=== PATIENT | female | born 1960 | race Two or more races ===

== ENCOUNTER 2020-10-01 16:20 | Emergency (ER) | payer MEDICARE ==
[~2020-10-01] VITALS: Ht 165.1 cm; Wt 114.5 kg
[~2020-10-01 16:20] MED LIST: FELO5TAB4 PO; METO-95 PO; PRED1TAB19; SIMV10TA18; SUMA5SPR2
[2020-10-01 17:08] LABS: BASOPHILS % (AUTO) 0 % (0-1); EOSINOPHILS % (AUTO) 1 % (1-7); LYMPHOCYTES % (AUTO) 39 % (22-44); MEAN CORPUSCULAR HEMOGLOBIN 28.3 pg (27.0-34.8); MEAN CORPUSCULAR HGB CONC 33.4 g/dL (32.4-35.8); MONOCYTES % (AUTO) 10 % (2-9); NEUTROPHILS % (AUTO) 50 % (42-75); PLATELET COUNT 235 x10^3/uL (130-400); RED BLOOD COUNT 5.05 x10^6/uL (3.82-5.3); RED CELL DISTRIBUTION WIDTH 14.1 % (9.6-15.2)
[2020-10-01 17:13] LABS: ALBUMIN 3.5 g/dL (3.4-5.0); ANION GAP 6 mmol/L (5-15); CALCIUM 8.7 mg/dL (8.5-10.1); CHLORIDE 106 mmol/L (98-107)
[2020-10-01 17:16] LABS: MD NO
[2020-10-01 17:19] LABS: ALANINE AMINOTRANSFERASE 17 U/L (12-78); ALKALINE PHOSPHATASE 120 U/L (45-117); BILIRUBIN,TOTAL 0.5 mg/dL (0.2-1.0); CREATININE 0.82 mg/dL (0.55-1.02); TOTAL PROTEIN 8.3 g/dL (6.4-8.2); TROPONIN I < 0.015 ng/mL (0.000-0.045)
--- NOTE | 2020-10-01 17:37 | NUR ---
PE MANAGER: PT TO ROOM FROM [facility]
[2020-10-01] MEDS ORDERED: MAALOX/HYOSCYAMINE/LIDOCAINE 45 ML BTL ONE (18:05)
[2020-10-01 18:29] VITALS: BP 114/70
[2020-10-01] MEDS ORDERED: MAALOX/HYOSCYAMINE/LIDOCAINE 45 ML BTL PO ONE (18:30)
== END 2020-10-01 18:39 | disposition home or self-care (01) ==
LOC: ED 18:33
DX: R07.2 Precordial pain (principal); R50.9 Fever, unspecified; R11.0 Nausea; R94.31 Abnormal electrocardiogram [ECG] [EKG]; I10 Essential (primary) hypertension; E11.9 Type 2 diabetes mellitus without complications; E78.5 Hyperlipidemia, unspecified
CPT/HCPCS: 36415; 71045; 76700; 80053; 83690; 84484; 85025; 93005; 99285

== ENCOUNTER 2020-12-29 13:21 | Emergency (ER) | payer MEDICARE ==
[~2020-12-29] VITALS: Ht 165.1 cm; Wt 117.1 kg
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
[2020-12-29] MEDS ORDERED: HYDROcodone/APAP 5/325 TABLET ONE (14:49)
[2020-12-29] MEDS ORDERED: HYDROcodone/APAP 5/325 TABLET PO ONE (15:00)
--- NOTE | 2020-12-29 15:06 | NUR ---
PT IN CT AT THIS TIME.
--- NOTE | 2020-12-29 15:18 | NUR ---
PT MEDICATED PER EMAR. PT TOLERATED WELL.
--- NOTE | 2020-12-29 15:52 | NUR ---
pt back to room at this time.
--- NOTE | 2020-12-29 17:09 | NUR ---
pt needs to see md before dc. md notified.
[2020-12-29 17:18] VITALS: BP 128/66
== END 2020-12-29 17:19 | disposition home or self-care (01) ==
LOC: ED 17:13
DX: S29.012A Strain of muscle and tendon of back wall of thorax, initial encounter (principal); S16.1XXA Strain of muscle, fascia and tendon at neck level, initial encounter; S00.83XA Contusion of other part of head, initial encounter; S20.211A Contusion of right front wall of thorax, initial encounter; R07.89 Other chest pain; E11.9 Type 2 diabetes mellitus without complications; I10 Essential (primary) hypertension; E78.5 Hyperlipidemia, unspecified; W01.0XXA Fall on same level from slipping, tripping and stumbling without subsequent striking against object, initial encounter; Y93.89 Activity, other specified; Y92.009 Unspecified place in unspecified non-institutional (private) residence as the place of occurrence of the external cause; Y99.8 Other external cause status
CPT/HCPCS: 70450; 71046; 72125; 99285

== ENCOUNTER 2021-02-06 20:19 | Observation (INO) | payer MEDICARE ==
[~2021-02-06] VITALS: Ht 154.9 cm; Wt 121.3 kg
--- NOTE | 2021-02-06 20:50 | NUR ---
PT TO ROOM 17 W/ C/O DIZZINESS STARTED 5 DAYS AGO. PT STATES SHE FEELS LIKE SHE IS GOING AT VERY HIGH SPEED LIKE SHE IS SPINNING. PT STATES SHE WAS FINE FOR THE LAST 2 DAYS AND THEN HAD DIZZINESS AGAIN WELL CP AND THE DIZZINESS STARTED AGAIN. PT DENIES HX FL. PT RESTING ON JOSE ALBERTO. MONITORS APPLIED. VSS. Addendum: 02/06/21 at 2105 by BNANISHA PT ALSO STATES BURNING W/ URINATION AND INCREASED FREQUENCY.
--- NOTE | 2021-02-06 21:05 | NUR ---
REPORT GIVEN TO CASEY RAO RN.
[2021-02-06 21:27] LABS: BASOPHILS % (AUTO) 1 % (0-1); EOSINOPHILS % (AUTO) 1 % (1-7); LYMPHOCYTES % (AUTO) 24 % (22-44); MEAN CORPUSCULAR HEMOGLOBIN 28.7 pg (27.0-34.8); MEAN CORPUSCULAR HGB CONC 33.4 g/dL (32.4-35.8); MEAN PLATELET VOLUME 8.5 fL (7.4-10.4); MONOCYTES % (AUTO) 7 % (2-9); NEUTROPHILS % (AUTO) 67 % (42-75); PLATELET COUNT 247 x10^3/uL (130-400); RED BLOOD COUNT 4.78 x10^6/uL (3.82-5.3); RED CELL DISTRIBUTION WIDTH 14.1 % (9.6-15.2)
[2021-02-06 21:28] LABS: MD NO
[2021-02-06] MEDS ORDERED: ONDANSETRON 2MG/ML, 2ML IVPush ONE (21:30)
[2021-02-06] MEDS ORDERED: MORPHINE SULFATE 4 MG/ML, 1ML IVPush PRN (21:30)
[2021-02-06] MEDS ORDERED: MECLIZINE CHEWABLE 25 MG TAB PO ONE (21:30)
[2021-02-06 21:38] LABS: ALBUMIN 3.2 g/dL (3.4-5.0); ANION GAP 6 mmol/L (5-15); CALCIUM 8.9 mg/dL (8.5-10.1); CHLORIDE 109 mmol/L (98-107)
[2021-02-06 21:44] LABS: ALANINE AMINOTRANSFERASE 13 U/L (12-78); ALKALINE PHOSPHATASE 112 U/L (45-117); BILIRUBIN,TOTAL 0.5 mg/dL (0.2-1.0); CREATININE 0.58 mg/dL (0.55-1.02); TOTAL PROTEIN 7.5 g/dL (6.4-8.2); TROPONIN I < 0.015 ng/mL (0.000-0.045)
[2021-02-06] MEDS ORDERED: ONDANSETRON 2MG/ML, 2ML ONE (22:00)
[2021-02-06] MEDS ORDERED: MORPHINE SULFATE 4 MG/ML, 1ML ONE (22:00)
[2021-02-06] MEDS ORDERED: MECLIZINE CHEWABLE 25 MG TAB ONE (22:00)
[2021-02-06 22:35] LABS: MICROSCOPIC NOT IND
[2021-02-06] MEDS ORDERED: POTASSIUM CHLORIDE 20 MEQ TAB.ER.PRT PO ONE (23:30)
--- NOTE | 2021-02-07 00:22 | NUR ---
PT AMBULATED IN HALLWAY TO RESTROOM, SLOW BUT STEADY GAIT. PT C/O MILD DIZZYNESS WHILE WALKING.
[2021-02-07] MEDS ORDERED: BISACODYL 10 MG SUPP PR PRN (03:00)
[2021-02-07] MEDS ORDERED: POTASSIUM CHLORIDE 20 MEQ TAB.ER.PRT PO ONE (03:00)
[2021-02-07] MEDS ORDERED: ONDANSETRON 2MG/ML, 2ML IVPush PRN (03:00)
[2021-02-07] MEDS ORDERED: ONDANSETRON ODT 4 MG PO PRN (03:00)
[2021-02-07] MEDS ORDERED: MECLIZINE 25 MG TABLET PO PRN (03:00)
[2021-02-07] MEDS ORDERED: DOCUSATE 100 MG CAPSULE PO PRN (03:00)
[2021-02-07] MEDS ORDERED: PROMETHAZINE 25 MG/ML, 1ML IM PRN (03:00)
[2021-02-07] MEDS ORDERED: OXYcodone IR 5MG TABLET PO PRN (03:00)
[2021-02-07] MEDS ORDERED: hydrALAzine 20 MG/ML, 1ML IVPush PRN (03:00)
[2021-02-07] MEDS ORDERED: POLYETHYLENE GLYCOL 17 GM PACKET PO PRN (03:00)
[2021-02-07 03:55] VITALS: BP 112/70
[2021-02-07] MEDS: SODIUM CHLORIDE 0.9% 1,000 ML IV SCH ×2 (04:15→15:00)
[2021-02-07] MEDS ORDERED: SUMA100T4 PO (04:47)
[2021-02-07] MEDS ORDERED: OMEP20CA20 PO (04:47)
[2021-02-07] MEDS: ENOXAPARIN 40 MG/0.4 ML SQ SCH (04:52)
[2021-02-07 05:57] LABS: BASOPHILS % (AUTO) 0 % (0-1); EOSINOPHILS % (AUTO) 3 % (1-7); LYMPHOCYTES % (AUTO) 37 % (22-44); MEAN CORPUSCULAR HEMOGLOBIN 28.9 pg (27.0-34.8); MEAN CORPUSCULAR HGB CONC 33.4 g/dL (32.4-35.8); MEAN PLATELET VOLUME 9.1 fL (7.4-10.4); MONOCYTES % (AUTO) 9 % (2-9); NEUTROPHILS % (AUTO) 51 % (42-75); PLATELET COUNT 230 x10^3/uL (130-400); RED BLOOD COUNT 4.58 x10^6/uL (3.82-5.3); RED CELL DISTRIBUTION WIDTH 13.6 % (9.6-15.2)
[2021-02-07 05:58] LABS: MD NO
[2021-02-07 06:02] LABS: CHLORIDE 110 mmol/L (98-107)
[2021-02-07 06:20] LABS: ALANINE AMINOTRANSFERASE 13 U/L (12-78); ALBUMIN 2.9 g/dL (3.4-5.0); ALKALINE PHOSPHATASE 96 U/L (45-117); ANION GAP 5 mmol/L (5-15); BILIRUBIN,TOTAL 0.5 mg/dL (0.2-1.0); CALCIUM 8.4 mg/dL (8.5-10.1); CHOL/HDL RATIO 3.2; CHOLESTEROL, TOTAL 184 mg/dL (140-239); CREATININE 0.56 mg/dL (0.55-1.02); HDL CHOL % 32 % (28-40); HDL CHOLESTEROL (DIRECT) 58 mg/dL (40-60); LDL CHOLESTEROL,CALCULATED 107 mg/dL (54-169); LDL/HDL RATIO 1.8 (0.5-3.0); TOTAL PROTEIN 6.8 g/dL (6.4-8.2); TRIGLYCERIDES 96 mg/dL (50-200); TROPONIN I < 0.015 ng/mL (0.000-0.045); VLDL CHOLESTEROL 19 mg/dL (0-25)
[2021-02-07 07:38] VITALS: BP 117/77
[2021-02-07 07:41] VITALS: BP 102/69
[2021-02-07 07:42] VITALS: BP 115/82
[2021-02-07 08:05] LABS: TROPONIN I < 0.015 ng/mL (0.000-0.045)
[2021-02-07] MEDS ORDERED: REGADENOSON 0.4 MG/5 ML SYRINGE ONE (08:08)
[2021-02-07] MEDS: ACETAMINOPHEN 325 MG TABLET PO PRN (11:46)
[2021-02-07 13:31] VITALS: BP 100/63
[2021-02-07 21:23] VITALS: BP 108/66
[2021-02-08] MEDS: ACETAMINOPHEN 325 MG TABLET PO PRN (00:29)
[2021-02-08 00:37] VITALS: BP 109/70
[2021-02-08] MEDS: ENOXAPARIN 40 MG/0.4 ML SQ SCH (05:00)
[2021-02-08 05:42] LABS: CHLORIDE 109 mmol/L (98-107)
[2021-02-08 05:47] LABS: ANION GAP 4 mmol/L (5-15); CALCIUM 8.4 mg/dL (8.5-10.1); CREATININE 0.63 mg/dL (0.55-1.02)
[2021-02-08 07:13] VITALS: BP 103/70
[2021-02-08 12:49] VITALS: BP 120/76
[2021-02-08] MEDS ORDERED: MAGNESIUM HYDROXIDE 8%, 30ML UDC PO PRN (13:30)
[2021-02-08 20:46] VITALS: BP 113/72
[2021-02-09 01:26] VITALS: BP 121/76
[2021-02-09] MEDS: ACETAMINOPHEN 325 MG TABLET PO PRN (03:24)
[2021-02-09] MEDS: ENOXAPARIN 40 MG/0.4 ML SQ SCH (05:00)
[2021-02-09 08:23] VITALS: BP 123/74
[2021-02-09] MEDS ORDERED: METOPROLOL TARTRATE 25 MG TAB PO SCH (10:30)
[2021-02-09] MEDS ORDERED: MECL-101 PO (12:35)
[2021-02-09] MEDS ORDERED: METO25TA35 PO (12:35)
[2021-02-09 12:37] VITALS: BP 139/79
== END 2021-02-09 15:30 | disposition home or self-care (01) ==
LOC: ED 02-07 00:47 → EDIP 02-07 02:09 → INTOOBSV 02-07 02:09 → 5SO 02-07 03:33 → DCLOUNGE 02-09 15:10
PROVIDERS: ADMIT Internal Medicine; ATTEND Internal Medicine
DX: H81.10 Benign paroxysmal vertigo, unspecified ear (principal); R07.89 Other chest pain; I10 Essential (primary) hypertension; E78.5 Hyperlipidemia, unspecified; G43.909 Migraine, unspecified, not intractable, without status migrainosus; M19.90 Unspecified osteoarthritis, unspecified site; E11.9 Type 2 diabetes mellitus without complications; E66.01 Morbid (severe) obesity due to excess calories; R10.11 Right upper quadrant pain; Z90.710 Acquired absence of both cervix and uterus; Z79.899 Other long term (current) drug therapy
CPT/HCPCS: 36415; 71045; 78452; 80048; 80053; 80061; 81003; 83036; 83735; 84100; 84443; 84484; 85025; 93005; 93017; 93306; 93880; 96361; 96372; 96374; 96375; 97112; 97163; 97166; 99285; A9502; G0378; J1650; J2270; J2405; J2785; J7030